=== PATIENT | female | born 1990 | race Caucasian/White ===

== ENCOUNTER 2016-08-10 20:28 | Emergency (ER) | payer OTHER ==
[2016-08-10 20:31] VITALS: BP 142/85; PULSE 62; TEMP 98.2; BMI 23.3
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
[2016-08-10 21:43] LABS: BASOPHIL 0.4 % (0-2.0); EOSINOPHIL 1.5 % (0-4.5); MCH 29.2 pg (25.7-33.7); MCHC 33.9 g/dl (32.0-36.0); MEAN CELL VOLUME 86.1 fl (80-96); MEAN PLT VOLUME 8.8 fl (7.5-11.1); NEUTROPHILS 62.8 % (42.8-82.8); PLATELET COUNT 284 K/MM3 (134-434); RDW 13.2 % (11.6-15.6); WHITE BLOOD COUNT 9.5 K/mm3 (4.0-10.0)
[2016-08-10 22:05] LABS: ALBUMIN 4.1 g/dl (3.4-5.0); ANION GAP 13 (8-16); BILIRUBIN,TOTAL 0.5 mg/dL (0.2-1.0); CHOLESTEROL 218 mg/dL (50-200); CO2 25 mmol/L (21-32); CREATININE 0.8 mg/dL (0.55-1.02); GLUCOSE,RANDOM 104 mg/dL (74-106); LDH 162 U/L (84-246); PHOSPHOROUS 2.6 mg/dL (2.5-4.9); SGOT/AST 17 U/L (15-37); SGPT/ALT 21 U/L (12-78); TOT PROT 7.5 g/dl (6.4-8.2)
[2016-08-10 22:06] LABS: ALK PHOS 64 U/L (45-117)
[2016-08-10 22:27] LABS: HIV 1 & 2 AB NEGATIVE; HIV 1 AGp24 NEGATIVE
[2016-08-12 06:07] LABS: HEP B SURFACE AB Reactive (.)
== END 2016-08-10 22:43 | disposition home or self-care (01) ==
LOC: JERFT 20:28
DX: Z77.21 Contact with and (suspected) exposure to potentially hazardous body fluids (principal); T75.89XA Other specified effects of external causes, initial encounter; X58.XXXA Exposure to other specified factors, initial encounter; Y93.89 Activity, other specified; Y92.9 Unspecified place or not applicable; Y99.0 Civilian activity done for income or pay
CPT/HCPCS: 36415; 80053; 82465; 82977; 83615; 84100; 84478; 84550; 85025; 86704; 86706; 87340; 87389; 99281-25

== ENCOUNTER 2023-11-08 23:36 | Emergency (ER) | payer OTHER ==
[2023-11-09 00:39] VITALS: BP 135/75; PULSE 85; RESP 18; TEMP 98.3; BMI 28.3
[2023-11-09] MEDS ORDERED: IBUPROFEN 600 MG TABLET (FP) PO ONE (00:41)
[2023-11-09] MEDS: IBUPROFEN 600 MG TABLET (FP) PO ONE (00:42)
== END 2023-11-09 00:47 | disposition home or self-care (01) ==
LOC: FER 23:36
DX: S93.402A Sprain of unspecified ligament of left ankle, initial encounter (principal); X50.1XXA Overexertion from prolonged static or awkward postures, initial encounter; Y93.01 Activity, walking, marching and hiking
CPT/HCPCS: 73610-TC-LT-FY; 99283-25